=== PATIENT | male | born 1975 | race African-American/Black ===

== ENCOUNTER 2016-03-05 14:49 | Emergency (ER) | payer OTHER ==
[2016-03-05 14:56] VITALS: BP 113/68; PULSE 89; BMI 19.6
== END 2016-03-05 19:14 | disposition left against medical advice (07) ==
LOC: JER 14:49
DX: Z53.21 Procedure and treatment not carried out due to patient leaving prior to being seen by health care provider (principal)
CPT/HCPCS: 99281-25